=== PATIENT | female | born 1975 | race Caucasian/White ===

== ENCOUNTER → 2016-12-28 | Outpatient (CLI) | payer MEDICARE, OTHER ==
[~2016-12-28] MED LIST: ALBUTEROL17 GM INH; CERTAGEN PO; CLOZAPINE PO; FAZACLO; FAZACLO PO; IBUPROFEN PO; KCL PO; LASIX PO; LOPID600 MG PO; LORTAB 5/500 TA1 TA1 PO; MICRO-K PO; ORUDIS75 M1 PO; PAMELOR PO; PROPRANOLOL PO; SYNTHROID PO; TOPAMAX PO; TRICOR PO; ZYRTEC PO
[2016-12-28 11:23] LABS: BASOPHIL% 0.2 % (0-2.5); HEMATOCRIT 40.3 % (35.0-45.0); HEMOGLOBIN 13.3 gm/dL (12.0-16.0); LYMPHOCYTE# 1.9 X10e3 (1.0-3.5); LYMPHOCYTE% 30.6 % (17.0-45.0); MEAN CELL VOLUME 92.4 FL (83-96); MEAN CORPUSCULAR HEMOGLOBIN 30.4 PG (28-34); MEAN CORPUSCULAR HGB CONC 32.9 g/dL (30-36); MEAN PLATELET VOLUME 6.6 FL (6.5-11.5); MONOCYTE# 0.4 X10e3 (0-1.0); MONOCYTE% 6.2 % (3.0-12.0); NEUTROPHIL# 3.9 X10e3 (1.5-7.1); PLATELET COUNT 170 X10e3 (140-420); RED BLOOD COUNT 4.36 X10e (3.90-5.30); RED CELL DISTRIBUTION WIDTH 13.8 % (11.0-15.5); WHITE BLOOD COUNT 6.2 X10e3 (4.0-10.5)
[2016-12-28 11:24] LABS: DIFF IND NO
== END | disposition home or self-care (01) ==
LOC: CLAB 10:59
PROVIDERS: Psychiatry & Neurology Psychiatry
DX: Z51.81 Encounter for therapeutic drug level monitoring (principal); Z79.899 Other long term (current) drug therapy
CPT/HCPCS: 36415; 85025